=== PATIENT | female | born 1950 | race Caucasian/White ===

== ENCOUNTER 2017-10-24 14:21 | Emergency (ER) | payer MEDICARE ==
[~2017-10-24] VITALS: Ht 162.6 cm; Wt 61.2 kg
[2017-10-24 14:21] VITALS: BP 121/84
[2017-10-24] MEDS ORDERED: NITROGLYCERIN 0.4 MG SL TABS BTL 25'S SL ONE (14:30)
[2017-10-24] MEDS ORDERED: ASPIRIN 81 MG CHEW (CHILDREN'S ASA) ONE (14:45)
[2017-10-24] MEDS ORDERED: LORazepam INJ 2 MG/ML (ATIVAN) VIAL ONE (14:45)
[2017-10-24] MEDS ORDERED: fentaNYL INJECTION 100 MCG/2 ML AMP ONE (14:45)
[2017-10-24] MEDS ORDERED: NITROGLYCERIN 0.4 MG SL TABS BTL 25'S SL PRN (15:15)
[2017-10-24 15:21] LABS: BASOPHILS % (AUTO) 0 % (0-10); EOSINOPHILS # (AUTO) 0.1 10^3/uL (0.0-0.3); EOSINOPHILS % (AUTO) 1 % (0-10); HEMATOCRIT 45 % (35-52); HEMOGLOBIN 14.9 G/DL (11.5-16.0); LYMPHOCYTES # (AUTO) 1.8 X 10^3 (1.0-4.0); LYMPHOCYTES % (AUTO) 25 % (12-44); MEAN CORPUSCULAR HEMOGLOBIN 32 PG (25-34); MEAN CORPUSCULAR HGB CONC 33 G/DL (32-36); MEAN CORPUSCULAR VOLUME 95 FL (80-99); MEAN PLATELET VOLUME 10.7 FL (7.4-10.4); MONOCYTES # (AUTO) 0.5 X 10^3 (0.0-1.0); MONOCYTES % (AUTO) 7 % (0-12); NEUTROPHILS # (AUTO) 4.8 X 10^3 (1.8-7.8); NEUTROPHILS % (AUTO) 67 % (42-75); PLATELET COUNT 233 10^3/uL (130-400); RED BLOOD COUNT 4.68 10^6/uL (4.35-5.85); WHITE BLOOD COUNT 7.3 10^3/uL (4.3-11.0)
[2017-10-24] MEDS ORDERED: ORPHENADRINE 60 MG/2 ML (NORFLEX) AMP IV ONE (15:30)
[2017-10-24 15:34] LABS: ALANINE AMINOTRANSFERASE 12 U/L (0-55); ALBUMIN 4.4 GM/DL (3.2-4.5); ALKALINE PHOSPHATASE 84 U/L (40-136); BILIRUBIN,TOTAL 0.7 MG/DL (0.1-1.0); BUN/CREATININE RATIO 14; CALCIUM 9.4 MG/DL (8.5-10.1); CARBON DIOXIDE 27 MMOL/L (21-32); CHLORIDE 104 MMOL/L (98-107); CREATININE SERUM 0.76 MG/DL (0.60-1.30); GFR ESTIMATED > 60; GLUCOSE 107 MG/DL (70-105); MAGNESIUM 2.3 MG/DL (1.8-2.4); SODIUM 141 MMOL/L (135-145)
[2017-10-24 15:41] LABS: MYOGLOBIN SERUM 24.4 NG/ML (10.0-92.0)
--- NOTE | 2017-10-24 15:41 | ED Chest Pain ---
General Chief Complaint: Chest Pain Stated Complaint: CHEST PAIN,BACK PAIN Nursing Triage Note: c/o CP STARTING AT 1400 WHILE AT [facility]. STATES IT FEELS LIKE HER SPINE IS TWISTING. UPPER BACK RADIATING DOWN WITH STERNAL INVOLVEMENT. SOA, SWEATING NAUSEA. DOUBLED OVER.TO RM 8 VIA WHEELCHAIR Nursing Sepsis Screen: No Definite Risk Source: patient, family Exam Limitations: no limitations History of Present Illness Date Seen by Provider: Oct 24, 2017 Time Seen by Provider: 15:00 Initial Comments This 67-year-old white female presents complaining of chest pain that [place] ac[place]. Patient described severe thoracic back pain sharp in nature that felt as if her back was being twisted. Patient developed diaphoresis and was short of air. Patient had nausea without vomiting. There was no previous similar episodes in the past. Patient denies preceding illness. Patient's had chest pain in the past for which she's had an ultrasound of her chest. She denies any history of an aortic aneurysm. Patient has hyperlipidemia and hypertension. Allergies and Home Medications Allergies Coded Allergies: No Known Drug Allergies (Unverified , 10/24/17) Patient Home Medication List Home Medication List Reviewed: Yes Review of Systems Constitutional: see HPI; No chills; diaphoresis; No fever, No weakness EENTM: No Blurred Vision Respiratory: Denies Cough; SOA at Rest Cardiovascular: Chest Pain; Denies Lightheadedness, Denies Palpitations Gastrointestinal: Denies Abdominal Pain; Nausea; Denies Vomiting Genitourinary: Denies Burning, Denies Frequency Musculoskeletal: see HPI, back pain Skin: No rash Psychiatric/Neurological: No Symptoms Reported Endocrine: No Symptoms Reported Hematologic/Lymphatic: No Symptoms Reported Past [id number]-Weakpv Hx Past Med/Social Hx: Reviewed Nursing Past Med/Soc Hx Patient Social History Alcohol Use: Occasionally Uses Alcohol Beverage of Choice: Beer Recreational Drug Use: No Smoking Status: Never a Smoker 2nd Hand Smoke Exposure: No Recent Foreign Travel: No Contact w/Someone Who Travel: No Recent Infectious Disease Expo: No Recent Hopitalizations: No Physical Abuse: No Sexual Abuse: No Mistreated: No Fear: No Seasonal Allergies Seasonal Allergies: No Past Medical History Surgeries: Yes Appendectomy Respiratory: No Cardiac: Yes High Cholesterol, Hypertension Neurological: No Genitourinary: No Gastrointestinal: No Musculoskeletal: No Endocrine: No HEENT: No Cancer: No Psychosocial: No Nursing Suicide Risk Score: 0 Integumentary: No Blood Disorders: No Family Medical History Reviewed Nursing Family Hx Physical Exam Vital Signs Vital Signs - First Documented 10/24/17 14:21 Temp 97.6 Pulse 98 Resp 14 B/P (MAP) 121/84 (96) Pulse Ox 96 O2 Delivery Nasal Cannula O2 Flow Rate 2.0 Capillary Refill : Less Than 3 Seconds Height, Weight, BMI Height: 5'4.00" Weight: 135lbs. oz. 61.057393pz; BMI Method:Stated General Appearance: WD/WN, Moderate Distress HEENT: Normal ENT Inspection Neck: Normal Inspection Respiratory: Lungs Clear Cardiovascular: Regular Rate, Rhythm Gastrointestinal: Normal Bowel Sounds Extremity: Normal Capillary Refill, Normal Inspection Neurologic/Psychiatric: Alert, Oriented x3, No Motor/Sensory Deficits, Normal Mood/Affect Skin: Normal Color Critical Care Note Critical Care Start Time: 16:00 Stop Time: 17:45 Total Time (minutes) 1:45 hours Date of : Oct 24, 2017 Progress/Results/Core Measures Results/Orders Lab Results Laboratory Tests Test 10/24/17 14:25 Range/Units White Blood Count 7.3 4.3-11.0 10^3/uL Red Blood Count 4.68 4.35-5.85 10^6/uL Hemoglobin 14.9 11.5-16.0 G/DL Hematocrit 45 35-52 % Mean Corpuscular Volume 95 80-99 FL Mean Corpuscular Hemoglobin 32 25-34 PG Mean Corpuscular Hemoglobin Concent 33 32-36 G/DL Red Cell Distribution Width 13.0 10.0-14.5 % Platelet Count 233 130-400 10^3/uL Mean Platelet Volume 10.7 H 7.4-10.4 FL Neutrophils (%) (Auto) 67 42-75 % Lymphocytes (%) (Auto) 25 12-44 % Monocytes (%) (Auto) 7 0-12 % Eosinophils (%) (Auto) 1 0-10 % Basophils (%) (Auto) 0 0-10 % Neutrophils # (Auto) 4.8 1.8-7.8 X 10^3 Lymphocytes # (Auto) 1.8 1.0-4.0 X 10^3 Monocytes # (Auto) 0.5 0.0-1.0 X 10^3 Eosinophils # (Auto) 0.1 0.0-0.3 10^3/uL Basophils # (Auto) 0.0 0.0-0.1 10^3/uL Prothrombin Time 13.0 12.2-14.7 SEC INR Comment 1.0 0.8-1.4 Activated Partial Thromboplast Time 24 24-35 SEC D-Dimer 4.26 H 0.00-0.49 UG/ML Sodium Level 141 135-145 MMOL/L Potassium Level 4.0 3.6-5.0 MMOL/L Chloride Level 104 98-107 MMOL/L Carbon Dioxide Level 27 21-32 MMOL/L Anion Gap 10 5-14 MMOL/L Blood Urea Nitrogen 11 7-18 MG/DL Creatinine 0.76 0.60-1.30 MG/DL Estimat Glomerular Filtration Rate > 60 BUN/Creatinine Ratio 14 Glucose Level 107 H 70-105 MG/DL Calcium Level 9.4 8.5-10.1 MG/DL Magnesium Level 2.3 1.8-2.4 MG/DL Total Bilirubin 0.7 0.1-1.0 MG/DL Aspartate Amino Transf (AST/SGOT) 16 5-34 U/L Alanine Aminotransferase (ALT/SGPT) 12 0-55 U/L Alkaline Phosphatase 84 40-136 U/L Myoglobin 24.4 10.0-92.0 NG/ML Troponin I < 0.30 <0.30 NG/ML B-Type Natriuretic Peptide < 10.0 <100.0 PG/ML Total Protein 7.0 6.4-8.2 GM/DL Albumin 4.4 3.2-4.5 GM/DL My Orders Orders - ASAEL HERNANDEZ MD Nitroglycerin 0.4 Mg Btl 25's (Nitrostat (10/24/17 14:30) Fentanyl Injection (Sublimaze Injection (10/24/17 14:45) Aspirin Chewable Tablet (Baby Aspirin Ch (10/24/17 14:45) Lorazepam Injection (Ativan Injection) (10/24/17 14:45) Cbc With Automated Diff (10/24/17 15:14) Magnesium (10/24/17 15:14) Chest 1 View, Ap/Pa Only (10/24/17 15:14) Ekg Tracing (10/24/17 15:14) Cardiac Profile 1 (10/24/17 15:14) Comprehensive Metabolic Panel (10/24/17 15:14) Myoglobin Serum (10/24/17 15:14) Protime With Inr (10/24/17 15:14) Partial Thromboplastin Time (10/24/17 15:14) O2 (10/24/17 15:14) Monitor-Rhythm Ecg Trace Only (10/24/17 15:14) Lipid Panel (10/25/17 06:00) Nitroglycerin 0.4 Mg Btl 25's (Nitrostat (10/24/17 15:15) Saline Lock/Iv-Start (10/24/17 15:14) BNP (10/24/17 15:14) Fibrin Degradation Products (10/24/17 15:14) Ct Angio Chest W (10/24/17 15:15) Orphenadrine Injection (Norflex Injectio (10/24/17 15:30) Iohexol Injection (Omnipaque 350 Mg/Ml 1 (10/24/17 16:00) Ns (Ivpb) (Sodium Chloride 0.9% Ivpb Bag (10/24/17 16:00) Enoxaparin Injection (Lovenox Injection) (10/24/17 16:00) Hydromorphone Injection (Dilaudid Inje (10/24/17 16:15) Hydromorphone Injection (Dilaudid Inje (10/24/17 16:03) Protamine Sulfate (Protamine Sulfate) (10/24/17 17:30) Ns Iv 1000 Ml (Sodium Chloride 0.9%) (10/24/17 18:00) Medications Given in ED Current Medications Medications Dose Ordered Sig/Cary Route Start Time Stop Time Status Last Admin Dose Admin Aspirin 81 mg STK-MED ONCE .ROUTE 10/24/17 14:45 10/24/17 14:47 DC 10/24/17 14:48 81 MG Enoxaparin Sodium 60 mg ONCE ONCE SC 10/24/17 16:00 10/24/17 16:01 DC 10/24/17 16:21 60 MG Fentanyl Citrate 100 mcg STK-MED ONCE .ROUTE 10/24/17 14:45 10/24/17 14:47 DC 10/24/17 14:50 50 MCG Hydromorphone HCl 1 mg ONCE ONCE IV 10/24/17 16:15 10/24/17 16:16 DC 10/24/17 16:20 1 MG Iohexol 150 ml ONCE ONCE IV 10/24/17 16:00 10/24/17 16:01 DC 10/24/17 16:01 140 ML Lorazepam 2 mg STK-MED ONCE .ROUTE 10/24/17 14:45 10/24/17 14:47 DC 10/24/17 14:52 1 MG Nitroglycerin 0.4 mg STK-MED ONCE SL 10/24/17 14:30 10/24/17 14:32 DC 10/24/17 14:32 0.4 MG Orphenadrine Citrate 60 mg ONCE ONCE IV 10/24/17 15:30 10/24/17 15:31 DC 10/24/17 15:53 60 MG Protamine Sulfate TIME ELAPSED | DOSE... ONCE ONCE IV 10/24/17 17:30 10/24/17 17:31 DC 10/24/17 17:20 60 MG Sodium Chloride 100 ml ONCE ONCE IV 10/24/17 16:00 10/24/17 16:01 DC 10/24/17 16:01 100 ML Vital Signs/I&O 10/24/17 10/24/17 10/24/17 14:21 14:21 14:25 Temp 97.6 Pulse 98 Resp 14 B/P (MAP) 121/84 (96) Pulse Ox 96 97 O2 Delivery Nasal Cannula Nasal Cannula O2 Flow Rate 2.0 2.0 2.00 Blood Pressure Mean: 96 Progress Progress Note : Time: 17:14 Progress Note The patient's EKG demonstrated a sinus rhythm. No acute current of injury was noted. Patient's chest x-ray was unremarkable. No mediastinal widening was appreciated. The patient's treatment consisted of nitroglycerin 3 without improvement. The patient received 50 g of fentanyl IV without significant improvement. The patient received a milligram of Dilaudid with marked improvement in her discomfort. The patient's initial laboratory evaluation demonstrated a markedly elevated d- dimer. In view of the patient's normal mediastinum on chest x-ray the patient received 1 mg/kg of Lovenox. The patient went for a PE study. The CT demonstrated hematoma of the aorta extending from the arch down the descending aorta in the abdomen. The patient received 6 milligrams of protamine sulfate was given to reverse the low molecular weight heparin. Dr. Foley at was kind enough to accept the patient in transfer. We are arranging for transportation for the patient currently. There are weather concerns for helicopters at this point. We are attempting to work around those restrictions. Departure Impression Primary Impression: Aortic dissection Qualified Codes: I71.01 - Dissection of thoracic aorta Disposition: XFER SHT-TRM HOSP Condition: Improved Transfer Time Spoke to Accepting Phy: 17:[address] Foley at [facility] accepted patient in transfer. Transfer Time: 17:39 Method of Transfer: EMS ASAEL HERNANDEZ MD Oct 24, 2017 15:41
[2017-10-24] MEDS ORDERED: ENOXAPARIN 60 MG/0.6 ML (LOVENOX) SYR SC ONE (16:00)
[2017-10-24] MEDS ORDERED: NS 100 ML (IVPB) BAG IV ONE (16:00)
[2017-10-24] MEDS ORDERED: IOHEXOL 350 MG/ML 150 ML (OMNIPAQUE 350) VIAL IV ONE (16:00)
[2017-10-24] MEDS ORDERED: HYDROmorphone 1 MG/ML (DILAUDID) 1 ML SYRINGE ONE (16:03)
[2017-10-24] MEDS ORDERED: HYDROmorphone 1 MG/ML (DILAUDID) 1 ML SYRINGE IV ONE (16:15)
--- NOTE | 2017-10-24 16:28 | Diagnostic Imaging Report ---
INDICATION: Chest pain and shortness of air. TIME OF EXAM: 4:12 PM No prior studies available for comparison. FINDINGS: The heart size is normal. The pulmonary vascularity is unremarkable. The lungs are clear. No infiltrate, effusion or pneumothorax is detected. IMPRESSION: No acute cardiopulmonary process is detected. Dictated by: Dictated on workstation # [id number]
--- NOTE | 2017-10-24 17:06 | Diagnostic Imaging Report ---
PROCEDURE: CT angiography of the chest with contrast. TECHNIQUE: Multiple contiguous axial images were obtained through the chest after uneventful bolus administration of intravenous contrast. Reconstructed CTA MIP acquisitions were also performed. INDICATION: Upper and lower back pain as well as chest pain and shortness of air. FINDINGS: There appear to be several low density nodules within both lobes of the thyroid gland. Abnormal appearance to the thoracic aorta is identified. There is a smoothly marginated crescentic low density along the wall of the thoracic aorta commencing at the aortic arch at the level of the subclavian artery origin and extending distally into the abdomen. The thickness of the low density is approximately 6-8 mm. Features are consistent with an aortic intramural hematoma. There are regions of minimal high density within the hematoma consistent with contrast pooling in the wall. No definite penetrating ulcer beyond the outer margin of the aorta is seen. Great vessels off the aortic arch are not involved. The ascending aorta has a normal appearance. The lumen of the aorta remains within normal limits and opacifies with contrast. No extravasation or evidence of aortic rupture is identified. The pulmonary arterial system is without thromboembolism. No filling defects within the central, lobar or segmental branches are seen. There is no pericardial or pleural fluid identified. Lungs appear to be clear apart from minimal subsegmental atelectasis in the bases. Upper abdomen is unremarkable apart from the upper abdominal aortic intramural hematoma. IMPRESSION: 1. Features consistent with thoracic aortic intramural hematoma commencing near the origin of left subclavian artery and extending distally into the abdomen. There are regions of intramural blood pooling but no definite penetrating ulcer is identified. 2. Small bilateral thyroid nodules. Thyroid ultrasound performed on a nonemergent basis for better characterization. Findings were called and discussed with Dr. Oz Garcia of the [facility] ER Department prior to this dictation. Dictated by: Dictated on workstation # [id number]
[2017-10-24] MEDS ORDERED: PROTAMINE 50 MG/5 ML VIAL IV ONE (17:30)
[2017-10-24] MEDS ORDERED: NS IV 1000 ML 1,000 ML IV SCH (18:00)
== END 2017-10-24 18:04 | disposition short-term general hospital (02) ==
LOC: ER 14:24
DX: I71.01 Dissection of thoracic aorta (principal); E78.00 Pure hypercholesterolemia, unspecified; I10 Essential (primary) hypertension; Z90.49 Acquired absence of other specified parts of digestive tract
CPT/HCPCS: 36415; 51702; 71045; 71275; 80053; 83735; 83874; 83880; 84484; 85025; 85379; 85610; 85730; 93005; 93041; 96372; 96374; 96375